=== PATIENT | male | born 1965 | race Caucasian/White ===

== ENCOUNTER 2020-06-20 15:52 | Emergency (ER) | payer OTHER ==
[~2020-06-20] VITALS: Ht 175.3 cm; Wt 127.0 kg
[~2020-06-20 15:52] MED LIST: ACETAMINOPHEN-1 EAC1 PO; CIPRO500 MG PO; HYDROCODONE-APA1 TA1 PO; NAPROSYN500 MG PO; NOHOMEMEDICATIONS; PREDNISONE 20 M20 MG PO; PROAIR HFA8.5 GM INH; TESSALON PERLE100 MG PO
[2020-06-20 16:26] LABS: URINE BILIRUBIN NEGATIVE (Negative); URINE BLOOD NEGATIVE (Negative); URINE CLARITY CLEAR; URINE COLOR YELLOW; URINE GLUCOSE-RANDOM NEGATIVE (Negative); URINE KETONES NEGATIVE (Negative); URINE LEUKOCYTES-REFLEX NEGATIVE (Negative); URINE NITRITE-REFLEX NEGATIVE (Negative); URINE PROTEIN NEGATIVE (Negative); URINE SPECIFIC GRAVITY >= 1.030 (1.005-1.030)
[2020-06-20] MEDS ORDERED: CLOTRIMAZOLE-BE15 GM TOP (16:39)
[2020-06-20 16:45] VITALS: BP 170/97
== END 2020-06-20 16:46 | disposition home or self-care (01) ==
LOC: M.ERS 15:52
PROVIDERS: Family Medicine
DX: N48.1 Balanitis (principal); F17.220 Nicotine dependence, chewing tobacco, uncomplicated; Z91.040 Latex allergy status